=== PATIENT | male | born 1945 | race Caucasian/White ===

== ENCOUNTER → 2018-03-04 | Outpatient (REF) | payer MEDICARE, OTHER ==
[2018-03-05 00:04] LABS: CPK CREATINE PHOSPHOKINASE 226 U/L (39-308)
== END ==
LOC: M LABDRAW1 14:20
DX: M25.50 Pain in unspecified joint (principal)
CPT/HCPCS: 82550

== ENCOUNTER → 2018-11-19 | Outpatient (CLI) | payer MEDICARE, OTHER ==
--- NOTE | 2018-11-19 13:06 | REP ---
Right elbow: Four views. History: Pain. Findings: There is a large olecranon process spur. A smaller coronoid process spur is seen. In addition, there is soft tissue swelling and there are several foci of osteocartilaginous calcifications along the course of the triceps tendon and musculotendinous junction consistent with chronic triceps tendinopathy. There is surrounding edema. There is no evidence of joint effusion. The distal humerus and the proximal radius appear intact. There is mild lateral epicondylar spurring. Impression: Calcifications and soft tissue swelling in the distribution of the triceps tendon consistent with chronic triceps tendinopathy. There is associated edema. This should be correlated clinically. There is proximal ulnar spurring noted and there is mild lateral epicondylar spurring. Electronically Signed by Boris Maldonado MD 11/19/2018 01:46 P
== END ==
LOC: M WUC 12:26
PROVIDERS: ATTEND Physician Assistant
DX: M25.521 Pain in right elbow (principal); M77.11 Lateral epicondylitis, right elbow

== ENCOUNTER → 2018-12-05 | Outpatient (CLI) | payer MEDICARE, OTHER ==
--- NOTE | 2018-12-05 11:34 | REP ---
MRI RIGHT ELBOW: TECHNIQUE: Multiple sequences in the axial, coronal and sagittal planes. There is a complete tear of the distal triceps tendon. There is a gap in the tendon measuring 2.1 cm in length. There is intervening fluid in the tendinous gap. Biceps, brachialis and brachioradialis appear intact. The medial and lateral collateral ligaments appear intact. There is not significant abnormal signal in the common flexor or extensor tendons. There is a small joint effusion. No osteochondral defect is seen. There is mild subchondral marrow edema in the posterior aspect of the distal humerus just medial to midline. No other abnormal bone marrow signal is seen. There is no occult fracture. No ganglion cyst is seen. Ulnar nerve is grossly unremarkable. It is not displaced. IMPRESSION: Complete tear triceps tendon with a tendinous gap 2.1 cm in length, with fluid filling this gap. Mild subchondral marrow edema distal humerus. No occult fracture. Small joint effusion. Electronically Signed by Wm Chadwick MD 12/09/2018 05:26 P
== END ==
LOC: M PLARAD 11-28 07:43
PROVIDERS: ATTEND Physician Assistant Medical
DX: S46.311A Strain of muscle, fascia and tendon of triceps, right arm, initial encounter (principal); X58.XXXA Exposure to other specified factors, initial encounter; Y92.89 Other specified places as the place of occurrence of the external cause

== ENCOUNTER 2019-01-19 05:41 | Day surgery (SDC) | payer MEDICARE ==
[~2019-01-19] VITALS: Ht 177.8 cm; Wt 84.0 kg
[~2019-01-19 05:41] MED LIST: CO Q200C10 PO; DHEA1CAP PO; HM V4000 PO; KP F1200 PO; MELO15TA28 PO; NEUR300C PO; NEXI40CA PO; TRAM50TA2 PO
[2019-01-19] MEDS ORDERED: dexameTHASONE 10 MG/1 ML VIAL PRES.FREE (J1100) ONE (05:42)
[2019-01-19] MEDS ORDERED: LIDOCAINE 1% MDV 20ML VIAL ONE (05:42)
[2019-01-19] MEDS ORDERED: ROPIvacaine 0.5% 30 ML INJECTION (J2795 PER 1MG) ONE (05:42)
[2019-01-19] MEDS ORDERED: LIDOCAINE 1% MDV 20ML VIAL SQ PRN (06:00)
--- NOTE | 2019-01-19 06:41 | ECGEPIP ---
[facility] Test Date: 2019-01-19 Pat Name: ED HARRIS Department: Room: - Gender: Male Landscaper: : [id number] Requested By: Corey Barlow Order Number: [id number] Reading MD: Higinio Jacobs Measurements Intervals [place] Rate: 53 P: 69 ND: 194 QRS: -41 QRSD: 107 T: -20 QT: 409 QTc: 385 Interpretive Statements Sinus bradycardia Left anterior hemiblock Nonspecific inferoapical ST/T-wave abnormalities. No prior tracing for comparison. Clincal correlation advised Electronically Signed on 01-19-2019 6:41:15 EDT by Higinio Jacobs
[2019-01-19] MEDS ORDERED: ROCURONIUM BROMIDE 50 MG/5 ML VIAL As Ordered ONE (06:57)
[2019-01-19] MEDS ORDERED: LIDOCAINE 2% INJ 100 MG/5 ML SDV (FOR ANES.) As Ordered ONE (06:57)
[2019-01-19] MEDS ORDERED: PROPOFOL 200 MG/20 ML VIAL As Ordered ONE (06:57)
[2019-01-19] MEDS ORDERED: dexameTHASONE 4 MG/ML 1ML VIAL (J1100) As Ordered ONE (07:00)
[2019-01-19] MEDS ORDERED: ONDANSETRON 4MG/2ML VIAL (J2405) As Ordered ONE ×2 (07:00→11:21)
[2019-01-19] MEDS ORDERED: LR 1,000 ML IV ONE (07:00)
[2019-01-19] MEDS ORDERED: MIDAZOLAM INJ 2 MG/2 ML VIAL (J2250) As Ordered ONE ×2 (07:02→09:48)
[2019-01-19] MEDS ORDERED: fentaNYL 100 MCG/2 ML INJECTION (J3010) As Ordered ONE ×4 (07:02→09:48)
[2019-01-19] MEDS ORDERED: ACETAMINOPHEN 1000MG 100ML IV BTL (OFIRMEV) (J0131 PER 10MG) As Ordered ONE (08:03)
[2019-01-19] MEDS ORDERED: ePHEDrine SULFATE 25 MG/5 ML(5MG/ML) SYRINGE As Ordered ONE (08:16)
[2019-01-19] MEDS ORDERED: GLYCOPYRROLATE INJ 0.2 MG/ML 2 ML VIAL As Ordered ONE (08:19)
[2019-01-19] MEDS ORDERED: SUGAMMADEX SODIUM 500 MG/5 ML VIAL (BRIDION) As Ordered ONE (08:26)
[2019-01-19] MEDS: fentaNYL 100 MCG/2 ML INJECTION (J3010) IV PRN ×4 (09:37→10:38)
[2019-01-19] MEDS: MIDAZOLAM INJ 2 MG/2 ML VIAL (J2250) IV SCH ×2 (09:53→10:01)
[2019-01-19] MEDS: fentaNYL 100 MCG/2 ML INJECTION (J3010) IV SCH ×2 (09:54→10:01)
[2019-01-19] MEDS ORDERED: LR 1,000 ML IV SCH (10:00)
[2019-01-19] MEDS ORDERED: ONDANSETRON 4MG/2ML VIAL (J2405) IV PRN (10:00)
[2019-01-19] MEDS ORDERED: PERCOCET 5MG/325MG TAB PO PRN (10:00)
--- NOTE | 2019-01-19 10:42 | RO ---
DATE OF PROCEDURE: 01/19/2019 PREOPERATIVE DIAGNOSIS: Right distal triceps tear. POSTOPERATIVE DIAGNOSIS: Right distal triceps tear. Operative procedure: Right distal tricep repair OPERATIVE FINDINGS: After the approach was made at the posterior aspect of the elbow we saw a complete distal triceps tear with about 3 cm retraction that was full thickness. It appears some of the deep fibers of the deep head was intact to the very tip of the olecranon necessitating repair. SURGEON: Dr. Darnell Keys INDICATIONS: This is a pleasant 73-year-old male who is extremely active in hunting, fishing and working out at the gym who suffered a triceps tear approximately 2 1/2 months at this point. Patient was initially evaluated and instructed that he would require operative intervention immediately however then proceeded to take a month long trip to [place] delaying his care. Patient expressed understanding of these risks at the time and wished to proceed with his trip anyway. He followed up at that point and was about 2 months out and was found to have fortunately little retraction however just in case we consented him for triceps repair with possible allograft if we were not able to mobilize his triceps. The patient expressed understanding and agreement and he consented to the risks and benefits including but not limited to rerupture, infection, damage to surrounding structures, elbow stiffness. He was instructed he will probably never be at full strength however this will give him elbow extension against gravity and will allow some resistance which he is currently lacking. ANTIBIOTICS: 2 grams Ancef given preoperative. TOURNIQUET TIME: 67 minutes. EQUIPMENT: Swivel lock Arthrex. ANESTHESIA: General. BLOOD LOSS: Minimal. PROCEDURE DESCRIPTION: Patient was brought back to the operating room and laid supine on a stretcher and underwent general anesthesia. Once anesthesia was complete we set the patient prone with well padding of his chest, pelvis and legs and his contralateral arm. We then prepped and draped the right arm in the usual fashion at which point we had time out confirming patient site, side and surgery. Once we were all in agreement we elevated the tourniquet to 250 mmHg. That was a sterile tourniquet. We then did a direct posterior incision overlying the triceps down to the olecranon. We sharply went through the subcutaneous tissue, identified the triceps fascia and elevated flaps of this. We then identified the triceps tendon, worked to mobilize the triceps tendon in order to increase its excursion. Once we were happy with this we turned our attention to the posterior aspect of the olecranon where we debrided and created bleeding cortical bone utilizing a drill and a bur. We were happy with prepping of the donor recipient site and we utilized #2 FiberWire and created and medial lateral stitch leaving suture limbs. We then used a 2-0 drill bit and drilled from the proximal aspect of the olecranon distally exiting the dorsal cortex being sure to be outside the joint. We then passed a loop FiberWire suture through the tendon utilizing a Brown sutures where we passed the medial limbs and the loops suture through the bone tunnel into the lateral aspect. We then took 1 of the crack off stitches from the medial and 1 from the lateral passed it through the loops and pulled it back through the tunnel creating a medial and lateral row repair. We did the same thing on the lateral bone tunnel at which point we were able to tighten it down and we have a nice foot print for the tendon to heal upon. We then sunk those suture limbs into the proximal ulna. After these were tensioned we put them into the bone tunnel with a Swivel lock creating nice tension. It was repaired with stress and it was a nice and strong repair that was intact at 90 degrees elbow flexion at which point we were happy with our repair. We irrigated the wound thoroughly closed the fascia over the bone tunnels and Swivel lock anchor. We then closed the triceps fascia over top with 0 Vicryl. We then closed the subcutaneous tissue with 2-0 Vicryl and sara for skin. Patient is to receive a peripheral nerve block postoperative so no local was given. We then placed the patient in a anteriorly based long arm splint preventing elbow flexion at approximately 45 degrees. He was taken to postanesthesia care unit in stable condition. POSTOPERATIVE PLAN: Patient will see me in the office in about 2 weeks where we will remove the splint and convert him to a hinged elbow brace where he will be allowed active elbow extension going from 45 degrees to full extension. After approximately every 2 weeks we will increase the elbow flexion allowed by 10 degrees with the goal of hopefully full elbow range around 6 weeks. We will limit strengthening of the tendon until 3 months. ANI
[2019-01-19] MEDS ORDERED: MORPHINE 4 MG/ML 1ML VIAL/SYRINGE (J2270) IV PRN (11:01)
[2019-01-19] MEDS ORDERED: oxyCODONE 5MG TAB PO PRN ×2 (11:01)
[2019-01-19] MEDS: MORPHINE 4 MG/ML 1ML VIAL/SYRINGE (J2270) IV SCH ×3 (11:10→12:01)
[2019-01-19 13:35] VITALS: BP 140/68
== END 2019-01-19 13:35 | disposition home or self-care (01) ==
LOC: M SDC 05:41
PROVIDERS: ATTEND Orthopaedic Surgery Hand Surgery
DX: S46.211A Strain of muscle, fascia and tendon of other parts of biceps, right arm, initial encounter (principal); X58.XXXA Exposure to other specified factors, initial encounter; Y92.89 Other specified places as the place of occurrence of the external cause; Y93.9 Activity, unspecified; Y99.9 Unspecified external cause status; K21.9 Gastro-esophageal reflux disease without esophagitis; Z79.899 Other long term (current) drug therapy
CPT/HCPCS: 24341; 93005; C1713; J0131; J0690; J1100; J2250; J2270; J2405; J2795; J3010

== ENCOUNTER 2019-12-11 13:24 | Emergency (ER) | payer MEDICARE ==
[~2019-12-11 13:24] MED LIST changes: +GI COCKTAIL 50ML BTL(HYOSCYAMINE/MAALOX/LIDOCAINE VISCOUS)(1:3:1) As Ordered ONE; +HYDROMORPHONE HCL 0.5 MG/ 0.5 ML SYRINGE (J1170 PER 1) As Ordered ONE; +ONDANSETRON 4MG/2ML VIAL As Ordered ONE
[2020-01-12 11:16] LABS: INR 1.13; PARTIAL THROMBOPLASTIN TIME 33.6 SECONDS (25.0-38.4); PROTHROMBIN TIME 14.8 SECONDS (11.8-14.0)
[2020-01-12 12:37] LABS: BASO % 0.1 % (0.0-1.0); EOS % 0.5 % (0.0-3.0); HEMATOCRIT 47.2 % (42.0-52.0); HEMOGLOBIN 16.3 g/dl (13.5-17.5); LYMPH # 1.2 10^3/uL (1.5-5.0); LYMPH % 14.7 % (24.0-44.0); MEAN CORPUSCULAR HEMOGLOBIN 32.6 pg (27.0-33.0); MEAN CORPUSCULAR HGB CONC 34.5 g/dl (32.0-36.5); MEAN CORPUSCULAR VOLUME 94.4 fl (80.0-96.0); MONO # 0.5 10^3/uL (0.0-0.8); MONO % 6.8 % (0.0-5.0); NEUTROPHILS # 6.1 10^3/uL (1.5-8.5); NEUTROPHILS % 77.1 % (36.0-66.0); PLATELET COUNT, AUTOMATED 202 10^3/uL (150-450); WHITE BLOOD COUNT 7.9 10^3/uL (4.0-10.0)
[2020-01-25 11:14] LABS: ALBUMIN 3.6 GM/DL (3.2-5.2); ALT/SGPT 41 U/L (12-78); BILIRUBIN,DIRECT 0.2 MG/DL (0.0-0.2); BILIRUBIN,TOTAL 1.2 MG/DL (0.2-1.0); BLOOD UREA NITROGEN 15 MG/DL (7-18); CALCIUM LEVEL 8.7 MG/DL (8.8-10.2); CARBON DIOXIDE LEVEL 28 MEQ/L (21-32); CHLORIDE LEVEL 105 MEQ/L (98-107); CK-MB VALUE MASS 2.2 NG/ML (<3.6); CPK CREATINE PHOSPHOKINASE 99 U/L (39-308); GLOMERULAR FILTRATION RATE > 60.0 (>42); GLUCOSE, FASTING 107 MG/DL (70-100); LIPASE 173 U/L (73-393); MB/CK RELATIVE INDEX 2.22 (< OR =4); POTASSIUM SERUM 4.5 MEQ/L (3.5-5.1); SODIUM LEVEL 137 MEQ/L (136-145); TOTAL PROTEIN 7.1 GM/DL (6.4-8.2); TROPONIN I < 0.02 NG/ML (< 0.10)
--- NOTE | 2020-01-28 17:33 | ECGEPIP ---
SINUS BRADYCARDA LAD NONSPECIFIC ST & T-WAVE CHANGES SEE SCANNED DOWNTIME REPORT MTDD
--- NOTE | 2020-01-28 17:35 | ECGEPIP ---
SINUS BRADYCARDIA MARKED LEFT AXIS DEVIATION SEE SCANNED DOWNTIME REPORT MTDD
== END 2019-12-11 14:44 | disposition home or self-care (01) ==
LOC: M ED 13:24
DX: K29.70 Gastritis, unspecified, without bleeding (principal); K21.9 Gastro-esophageal reflux disease without esophagitis; R00.1 Bradycardia, unspecified; I48.91 Unspecified atrial fibrillation; Z87.19 Personal history of other diseases of the digestive system; Z79.899 Other long term (current) drug therapy; Z79.01 Long term (current) use of anticoagulants; Z88.5 Allergy status to narcotic agent
CPT/HCPCS: 80048; 80076; 82550; 82553; 83690; 84484; 85025; 85610; 85730; 93005; 96374; 96375; 99283; J1170; J2405

== ENCOUNTER → 2025-02-26 | Outpatient (CLI) | payer OTHER ==
[~2025-02-26] MED LIST changes: -GI COCKTAIL 50ML BTL(HYOSCYAMINE/MAALOX/LIDOCAINE VISCOUS)(1:3:1) As Ordered ONE; -HYDROMORPHONE HCL 0.5 MG/ 0.5 ML SYRINGE (J1170 PER 1) As Ordered ONE; -ONDANSETRON 4MG/2ML VIAL As Ordered ONE
[2025-02-26 17:58] LABS: BASO # 0.0 10^3/uL (0.0-0.2); BASO % 0.2 % (0.0-1.0); EOS # 0.2 10^3/uL (0.0-0.5); EOS % 3.7 % (0.0-3.0); LYMPH # 1.8 10^3/uL (1.5-5.0); LYMPH % 27.8 % (24.0-44.0); MONO # 0.9 10^3/uL (0.0-0.8); MONO % 14.9 % (2.0-8.0); NEUTROPHILS # 3.4 10^3/uL (1.5-8.5); NEUTROPHILS % 53.2 % (36.0-66.0); PLATELET COUNT, AUTOMATED 287 10^3/uL (150-450)
[2025-02-26 18:07] LABS: ALT/SGPT 50 U/L (7.0-40); AST/SGOT 34 U/L (<34); C REACTIVE PROTEIN QUANTITATIV < 0.50 MG/DL (<1.0); CALCIUM LEVEL 9.9 MG/DL (8.3-10.6); CARBON DIOXIDE LEVEL 28 MMOL/L (20-31); CHLORIDE LEVEL 100 MMOL/L (98-107); CREATININE FOR GFR 1.18 MG/DL (0.70-1.30); GLOMERULAR FILTRATION RATE 63.2 (>42); POTASSIUM SERUM 4.9 MMOL/L (3.5-5.1); SODIUM LEVEL 136 MMOL/L (136-145)
[2025-02-26 18:08] LABS: FREE T4 1.55 NG/DL (0.89-1.76)
[2025-02-26 18:35] LABS: ERYTHROCYTE SEDIMENTATION RATE 9 mm/hr (0-20)
== END ==
LOC: M WUC 14:15
PROVIDERS: ATTEND Physician Assistant
DX: R53.83 Other fatigue (principal)